=== PATIENT | female | born 1975 | race Two or more races ===

== ENCOUNTER → 2024-10-15 | Outpatient (CLI) | payer BC, SELFPAY ==
[2024-10-16 09:02] LABS: BVAG Candida Negative (Negative); Bacterial Vaginosis Markers Positive (Negative); Candida glabrata Negative (Negative); Candida krusei PCR Negative (Negative); Trichomonas Negative (Negative)
== END | disposition home or self-care (01) ==
PROVIDERS: Referring Provider Specialist; Visit Provider Specialist
DX: B37.89 Other sites of candidiasis (principal); N76.0 Acute vaginitis; A59.01 Trichomonal vulvovaginitis; R10.2 Pelvic and perineal pain
CPT/HCPCS: 81514; 87077; 87086; 87186

== ENCOUNTER 2024-11-25 07:55 | Day surgery (SDC) | payer BC, SELFPAY ==
--- NOTE | 2024-11-21 11:35 | ESHP_ITS ---
RE: NEO BURNS : 1975 DATE OF ADMISSION: 11/25/2024 HISTORY OF PRESENT ILLNESS: This is a 49-year-old 3, para 3 with abnormal uterine bleeding, who presents for endometrial ablation. ALLERGIES: NO KNOWN DRUG ALLERGIES. MEDICATIONS: 1. Propranolol 20 mg one p.o. daily 2. Furosemide 20 mg one p.o. daily 3. Protonix 20 mg one p.o. daily 4. Topamax 100 mg one p.o. b.i.d. 5. Fenofibrate 160 mg one p.o. daily. 6. Atorvastatin 20 mg one p.o. daily. 7. Tramadol 50 mg one p.o. q. 6 hours p.r.n. pain. 8. Duloxetine 30 mg one p.o. daily 8. Pregabalin 100 mg one p.o. daily. 9. Tizanidine 4 mg one p.o. daily 10. Valsartan/hydrochlorothiazide 160-12.5 mg one p.o. daily. ALLERGIES: NO KNOWN DRUG ALLERGIES. PAST MEDICAL HISTORY: Fibromyalgia, hypertension, systemic lupus erythematosus, gastroesophageal reflux disease. SOCIAL HISTORY: She is . She denies any alcohol, drug use or smoking. OBSTETRIC HISTORY: Two previous full-term normal vaginal deliveries and one previous delivery. PAST SURGICAL HISTORY: In 2012, delivery, appendectomy. FAMILY HISTORY: Denies. REVIEW OF SYSTEMS: She denies any headache, change in vision or right upper quadrant pain. She denies any chest pain, palpitations, shortness of breath, or lower extremity pain. PHYSICAL EXAMINATION: VITAL SIGNS: Blood pressure is 132/84, heart rate 88, respirations 18, temperature 98.2. HEENT: Oropharynx and sclerae are clear. LUNGS: Clear to auscultation bilaterally. HEART: Regular rate and rhythm. ABDOMEN: Old Pfannenstiel scar noted. EXTREMITIES: Nontender. SKIN: No gross rashes or lesion. NEUROLOGIC: No focal deficits. ASSESSMENT: Abnormal uterine bleeding. PLAN: Hysteroscopy, fractional dilatation and curettage, NovaSure endometrial ablation. Informed consent was obtained. The patient was made aware of the risks, complications, alternatives, and benefits of the proposed procedure and she agrees. She is aware of the risk of injury to bowel or bladder, uterus, adjacent organs, pulmonary embolism, deep vein thrombosis, pelvic infection, reoperation, repair injury to internal organs, anesthesia complications, the possibility that a laparotomy needs to be performed to repair organs or controlled bleeding, the possibility of the procedure is not able to be completed due to severe adhesions or technical difficulties. DT: 09:38:57 TT: 11:34:00 Ref: [id number] - TID: [id number] MTDD
[2024-11-24 08:35] VITALS: BMI 24.8
--- NOTE | 2024-11-24 08:47 | EKG_ITS ---
[facility] Test Date: 2024-11-24 Pat Name: NOE BURNS Department: Room: - Gender: Female Childcare Aide: PATRICIA : 1975 Requested By: Jose Mejia Order Number: [id number] Reading MD: Jose Mejia Measurements Intervals [place] Rate: 67 P: 29 NC: 138 QRS: 14 QRSD: 75 T: 40 QT: 415 QTc: 441 Interpretive Statements SINUS RHYTHM MINIMAL VOLTAGE CRITERIA FOR LVH, CONSIDER NORMAL VARIANT Compared to ECG 08/22/2024 02:14:09 No significant changes /store/S0/[id number].pdf
[2024-11-24 10:51] LABS: Basophils # (Auto) 0.1 Thou/mm3 (0.0-0.2); Basophils % (Auto) 1 % (0-2.5); Eosinophils # (Auto) 0.4 Thou/mm3 (0.0-0.5); Eosinophils % (Auto) 4 % (0-10); Hematocrit 43.6 % (36.0-46.0); Hemoglobin 14.2 g/dL (12.0-16.0); Immature Granulocytes % (Auto) 0 % (0-0); Immature Granulocytes Auto 0.03 Thou/mm3 (0.00-0.00); Lymphocytes # (Auto) 2.2 Thou/mm3 (1.0-4.8); Lymphocytes % (Auto) 20 % (10-50); Mean Corpuscular HGB Conc 32.6 g/dl (31.0-37.0); Mean Corpuscular Hemoglobin 28.5 pg (25.0-35.0); Mean Corpuscular Volume 87 fL (80-100); Monocytes # (Auto) 0.9 Thou/mm3 (0.0-0.8); Monocytes % (Auto) 8 % (0-12); Neutrophils # (Auto) 7.1 Thou/mm3 (1.8-7.7); Neutrophils % (Auto) 67 % (37-80); Nucleated Red Blood Cell % 0 /100 WBC (0); Platelet Count 301 Thou/mm3 (140-440); Red Blood Count 4.99 Miln/mm3 (4.00-5.20); White Blood Count 10.6 Thou/mm3 (3.6-11.0)
[2024-11-24 10:53] LABS: INR 0.9 (0.9-1.3); Partial Thromboplastin Time 21.8 Seconds (22.0-36.0); Prothrombin Time 10.4 Seconds (9.0-12.2)
[2024-11-24 19:09] LABS: Alanine Aminotransferase 15 U/L (10-49); Albumin, Serum 5.4 gm/dL (3.5-5.0); Albumin/Globulin Ratio 1.9 (1.2-2.2); Alkaline Phosphatase 95 U/L (46-116); Anion Gap 11 (7-16); Aspartate Amino Transferase 21 U/L (0-34); BUN/Creatinine Ratio 22 Ratio (12-20); Beta HCG,Quantitative < 1 mIU/mL (<5.0); Bilirubin,Total 0.5 mg/dL (0.3-1.2); Blood Urea Nitrogen 28 mg/dL (9-23); Calcium 9.7 mg/dL (8.3-10.6); Calcium (Corrected) 9.7 mg/dL (8.5-10.1); Carbon Dioxide 23.2 mMol/L (20.0-31.0); Chloride 98 mMol/L (98-107); Creatinine (Component) 1.3 mg/dL (0.6-1.3); Estimated Creatinine Clearance 42.1 mL/min (>60); Globulin 2.9 gm/dL (2.3-3.5); Glucose 114 mg/dL (74-106); Osmolality,Calculated 271 (275-295); Potassium 3.8 mMol/L (3.4-5.1); Sodium 132 mMol/L (136-145); Total Protein 8.3 gm/dL (5.7-8.2); eGFR 51 See Note
[2024-11-25] VITALS (8 sets, daily range): BP systolic 104–133; BP diastolic 62–75; PULSE 75–85; RESP 12–17; TEMP 36.4–36.9; O2SAT 96–100; BMI 25.2
--- NOTE | 2024-11-25 11:40 | SUR.PHASEI ---
1140 Patient arrived to recovery sleeping comfortably in [facility], able to arouse with sternal rub then drifts back to sleep, on oxygen 6L via oxy mask, breathing unlabored, vital signs stable, dressing intact to vaginal area; peripad, no bleeding noted, lung sounds clear upon auscultation, bilateral radial pulses present when palpated, report received Shad EVANS and Melani SIMPSON/Ga PLUMBING DRAFTER
--- NOTE | 2024-11-25 12:48 | SUR.PHASEII ---
1248 Patient meets discharge criteria from recovery, awake and alert, breathing unlabored, vital signs stable, denies pain, dressing intact; no bleeding noted, patient ate a jello; tolerating well, denies nausea, patient assisted with dressing into her clothing by her , discharge instructions given to patient and patients , signed discharge instructions. Patient given all her belongings prior to discharge, transported via wheelchair and left in a private vehicle.
--- NOTE | 2024-11-25 20:20 | ESOP_ITS ---
RE: NEO BURNS : 1975 DATE OF OPERATION: 11/25/2024 PREOPERATIVE DIAGNOSIS: Abnormal uterine bleeding. POSTOPERATIVE DIAGNOSIS: Abnormal uterine bleeding. PROCEDURE PERFORMED: Hysteroscopy, MyoSure removal of endometrial polyp, fractional dilatation and curettage and NovaSure endometrial ablation. SURGEON: Ron Mandujano DO FRUIT CANNER: None. ANESTHESIA: General. ANESTHESIOLOGIST: Ga Hughes CRNA ESTIMATED BLOOD LOSS: 3 mL. COMPLICATIONS: None. COUNTS: Correct. PATHOLOGY: 1. Endometrial polyp. 2. Endometrial curettings. 3. Endocervical curettings. FINDINGS: Uterus sounds to 9.0 cm anteverted. Cervical length is 3.5 cm. Uterine cavity length is 5.5 cm. Uterine cavity width is 3.6 cm. Power setting is 109 torres. Duration of ablation is 1 minute and 18 seconds. Fluids absorbed hysteroscopically is 10 mL of normal saline. A polypoid tissue on the anterior fundal aspect of the uterus. DESCRIPTION OF PROCEDURE: After proper informed consent was obtained and the patient was made aware of the risks, complications, alternatives and benefits of the proposed procedure, she was taken to the operating room where she underwent induction of general anesthesia. She was placed in the dorsal lithotomy position. She was prepped and draped in a sterile fashion. A speculum was placed in the vagina. Single-tooth tenaculum was used to grasp the anterior lip of the cervix. The cervix was measured at 3.5 cm. The uterus sounded to 9.0 cm. The cervix was dilated to accommodate the 5.5 mm Omni hysteroscope. The hysteroscope was then utilized to visualize the endocervix and uterine cavity and the above findings were noted. The MyoSure Reach device was then used to remove the polypoid tissue on the anterior fundal aspect of the uterus. Specimen sent to Pathology. The endocervix was curetted and specimen sent to pathology. The uterine cavity was curetted and specimen sent to Pathology. The NovaSure catheter was appropriately seated in the uterine cavity. The width meter read 3.6. The carbon dioxide cavity integrity assessment showed the cavity was intact. The ablation was performed for a total of 1 minute and 18 seconds at a power setting of 109 torres. The array was retracted into the sheath when the controller shut off and was redeployed and found to be completely intact. There was no bleeding at the end of the procedure. All instruments were removed from the vagina. She was reversed from general anesthesia in the supine position and transferred to the recovery room in stable condition. She tolerated the procedure well. All counts were correct. I discussed with the patient's the nature of her condition, the intraoperative findings and expectations for recovery. All questions answered. DT: 11:44:31 TT: 20:19:00 Ref: [id number] - TID: [id number]
== END 2024-11-25 12:48 | disposition home or self-care (01) ==
PROVIDERS: Referring Provider Specialist; Visit Provider Specialist
PROC: 0U5B8ZZ Destruction of Endometrium, Via Natural or Artificial Opening Endoscopic (ICD-10-PCS; CPT 58563; principal; 2024-11-25 10:00)
DX: N88.8 Other specified noninflammatory disorders of cervix uteri (principal); I10 Essential (primary) hypertension; K21.9 Gastro-esophageal reflux disease without esophagitis; M32.9 Systemic lupus erythematosus, unspecified; M79.7 Fibromyalgia
CPT/HCPCS: 58563; 36415; 80053; 84702; 85025; 85610; 85730; 86850; 86900; 86901; 93005; A4217; A4649; J0131; J0690; J1885; J2250; J2405; J2704; J2765; J3010

== ENCOUNTER → 2025-06-25 | Outpatient (CLI) | payer BC, SELFPAY ==
[2025-06-25 10:59] LABS: Collection Type, Urine Clean Catch
[2025-06-25 11:18] LABS: Basophils # (Auto) 0.1 Thou/mm3 (0.0-0.2); Basophils % (Auto) 1 % (0-2.5); Eosinophils # (Auto) 0.3 Thou/mm3 (0.0-0.5); Eosinophils % (Auto) 4 % (0-10); Hematocrit 41.0 % (36.0-46.0); Hemoglobin 13.5 g/dL (12.0-16.0); Immature Granulocytes Auto 0.02 Thou/mm3 (0.00-0.00); Lymphocytes # (Auto) 1.7 Thou/mm3 (1.0-4.8); Lymphocytes % (Auto) 22 % (10-50); Mean Corpuscular HGB Conc 32.9 g/dl (31.0-37.0); Mean Corpuscular Hemoglobin 29.8 pg (25.0-35.0); Mean Corpuscular Volume 91 fL (80-100); Monocytes # (Auto) 0.6 Thou/mm3 (0.0-0.8); Monocytes % (Auto) 7 % (0-12); Neutrophils # (Auto) 5.2 Thou/mm3 (1.8-7.7); Neutrophils % (Auto) 66 % (37-80); Nucleated Red Blood Cell # 0.00 Thou/mm3 (0.00-0.00); Nucleated Red Blood Cell % 0 /100 WBC (0); Platelet Count 284 Thou/mm3 (140-440); RDW Standard Deviation 44.6 fL (36.4-46.3); Red Blood Count 4.53 Miln/mm3 (4.00-5.20); White Blood Count 7.9 Thou/mm3 (3.6-11.0)
[2025-06-25 11:29] LABS: Bacteria,Urine 1+; Bilirubin,Urine Negative (Negative); Blood,Urine Negative (Negative); Clarity,Urine Turbid (Clear/Hazy); Color,Urine Yellow (Lt Yel-Yel); Glucose, Urine Negative (Negative); Ketones,Urine Negative (Negative); Leukocyte Esterase,Urine Negative (Negative); Nitrite,Urine Positive (Negative); PH,Urine 6.0 (5.0-7.0); Protein,Urine Negative (Neg - Trace); RBC,Urine 1 /hpf (0-3); Specific Gravity,Urine 1.024 (1.001-1.035); Squamous Epithelial Cell,Urine 14 /hpf (0-5); Urobilinogen,Urine Negative mg/dL (0.0-1.0); WBC,Urine 3 /hpf (0-5)
[2025-06-25 11:56] LABS: Alanine Aminotransferase 16 U/L (10-49); Albumin, Serum 4.7 gm/dL (3.5-5.0); Albumin/Globulin Ratio 2.1 (1.2-2.2); Alkaline Phosphatase 103 U/L (46-116); Anion Gap 9 (7-16); Aspartate Amino Transferase 25 U/L (0-34); BUN/Creatinine Ratio 22 Ratio (12-20); Bilirubin,Total 0.8 mg/dL (0.3-1.2); Blood Urea Nitrogen 13 mg/dL (9-23); Calcium 9.6 mg/dL (8.3-10.6); Calcium (Corrected) 9.6 mg/dL (8.5-10.1); Carbon Dioxide 26.2 mMol/L (20.0-31.0); Chloride 104 mMol/L (98-107); Creatinine (Component) 0.6 mg/dL (0.6-1.3); Globulin 2.2 gm/dL (2.3-3.5); Glucose 100 mg/dL (74-106); Osmolality,Calculated 277 (275-295); Potassium 4.6 mMol/L (3.4-5.1); Sodium 139 mMol/L (136-145); Thyroid Stimulating Hormone 0.59 uIU/mL (0.55-4.78); Total Protein 6.9 gm/dL (5.7-8.2); eGFR > 60 See Note
[2025-06-25 12:19] LABS: Ferritin 20 ng/mL (7.3-270.7)
[2025-06-25 12:46] LABS: Vitamin B12 687 pg/mL (211-911); Vitamin D 25 Hydroxy Total 29.0 ng/mL (7.3-40.2)
[2025-06-25 14:26] LABS: Cholesterol 166 mg/dL (132-200); Triglycerides 141 mg/dL (30-150); Uric Acid 4.1 mg/dL (3.1-7.8)
[2025-06-25 14:55] LABS: Cardiac Risk Estimate 3.3 RATIO (3.7-5.6); HDL Cholesterol 50 mg/dL (40-60); LDL Cholesterol,Calculated 88 mg/dL (0-130)
[2025-06-25 15:02] LABS: Glucose Estimated Average 126 mg/dL (80-131); Hemoglobin A1C 6.0 % Hgb (4.8-6.0)
== END | disposition home or self-care (01) ==
LOC: COPL 10:27
PROVIDERS: PCP Internal Medicine; Referring Provider Internal Medicine; Visit Provider Internal Medicine
DX: Z00.00 Encounter for general adult medical examination without abnormal findings (principal); I10 Essential (primary) hypertension; E78.5 Hyperlipidemia, unspecified
CPT/HCPCS: 36415; 80053; 80061; 81001; 82306; 82607; 82728; 83036; 84443; 84550; 85025